=== PATIENT | male | born 1980 | race Asian ===

== ENCOUNTER 2020-09-23 12:55 | Outpatient (RCR) | payer BC | END 2020-09-27 | LOC: WSOT | DX: S62.338A Displaced fracture of neck of other metacarpal bone, initial encounter for closed fracture (principal) ==

== ENCOUNTER 2020-10-11 13:40 | Outpatient (CLI) | payer BC ==
[2020-10-11 14:45] VITALS: BP 121/75; PULSE 89; TEMP 97.7
[2020-10-11] MEDS ORDERED: MELATONIN1 MG PO (14:55)
[2020-10-11] MEDS ORDERED: D3-5050000 IU PO (14:55)
[2020-10-11] MEDS ORDERED: ZYRTEC 10MG10 MG PO (14:57)
[2020-10-11] MEDS ORDERED: ZITHROMAX 250M250 MG PO (14:58)
[2020-10-11] MEDS ORDERED: VITAMINC500CH PO (14:59)
[2020-10-11 15:00] VITALS: BP 111/72; PULSE 63
[2020-10-11 15:30] VITALS: BP 107/78; PULSE 88
[2020-10-11 15:31] VITALS: BP 121/71; PULSE 89; TEMP 97.7
[2020-10-11 16:00] VITALS: BP 114/76; PULSE 88
[2020-10-11 16:30] VITALS: BP 117/83; PULSE 90; TEMP 97.5
--- NOTE | 2020-10-11 17:08 | NUR ---
PT COMPLETED INFUSION. VSS. NO ADVERSE REACTION NOTED. PT ESCORTED TO ER EXIT FOR DISCHARGE.
== END 2020-10-11 17:00 ==
LOC: EUO 13:40
DX: U07.1 COVID-19 (principal)
CPT/HCPCS: J7050